=== PATIENT | male | born 1980 | race Caucasian/White ===

== ENCOUNTER 2016-08-25 22:29 | Observation (INO) | payer OTHER ==
[2016-08-25] MEDS ORDERED: Morphine 4 MG/ML VIAL ONE (23:01)
[2016-08-25 23:30] LABS: CHLORIDE 99 mmol/L (98-107); SODIUM 135 mmol/L (132-148)
[2016-08-25 23:31] LABS: BASO % 0.3 % (0.0-2.0); EOS # 0.1 K/uL (0.0-0.7); EOS % 1.7 % (0.0-4.0); HEMATOCRIT 44.4 % (35.0-51.0); LYMPH # 2.5 K/uL (1.0-4.3); LYMPH % 29.8 % (20.0-40.0); MEAN CELL VOLUME 86.9 fL (80.0-94.0); MEAN CORPUSCULAR HEMOGLOBIN 30.9 pg (27.0-31.0); MEAN CORPUSCULAR HGB CONC 35.5 g/dL (33.0-37.0); MEAN PLATELET VOLUME 7.6 fL (7.2-11.7); MONO # 0.8 K/uL (0.0-0.8); MONO % 9.7 % (0.0-10.0); NRBC % 0.3 % (0.0-2.0); RED CELL DISTRIBUTION WIDTH 12.3 % (11.5-14.5); WHITE BLOOD COUNT 8.3 K/uL (4.8-10.8)
[2016-08-25 23:32] LABS: ALB/GLOB RATIO 1.4 (1.0-2.1); ALKALINE PHOSPHATASE 72 U/L (38-126); AST/SGOT 77 U/L (17-59); BILIRUBIN,TOTAL 0.9 mg/dL (0.2-1.3); CARBON DIOXIDE 23 mmol/L (22-30); GFR AFRICAN-AMERICAN > 60; TOTAL PROTEIN 7.8 g/dL (6.3-8.3)
[2016-08-25 23:33] LABS: ALT/SGPT 176 U/L (21-72); BLOOD UREA NITROGEN 18 mg/dL (9-20); CALCIUM 9.5 mg/dl (8.6-10.4); GLUCOSE,RANDOM 218 mg/dL (75-110)
--- NOTE | 2016-08-26 00:51 | C.PDOC ---
History Of Present Illness 35 year old male presents to the ED with complaints of severe pain in the right leg. Patient states that two days ago he had vein stripping surgery in his right leg at a "vein center" by unknown doctor. Patient was advised to remove dressings today. He did and then began to experience the pain which prompted ED visit. Patient states he did not take any medicine at home and did not try to contact the vein center. He denies fever, chills, or any other complaints at this time. Time Seen by Provider: 08/25/16 22:51 Chief Complaint (Nursing): Lower Extremity Problem/Injury History Per: Patient History/Exam Limitations: no limitations Onset/Duration Of Symptoms: Hrs Current Symptoms Are (Timing): Still Present Recent travel outside of the [place]: No Additional History Per: Prior Records Past Medical History Reviewed: Historical Data, Nursing Documentation, Vital Signs Vital Signs: Last Vital Signs Temp 97.6 F 08/26/16 06:14 Pulse 72 08/26/16 06:14 Resp 18 08/26/16 06:14 BP 116/88 08/26/16 06:14 Pulse Ox 99 08/26/16 06:14 - Medical History PMH: Diabetes Family History: States: No Known Family Hx - Social History Hx Alcohol Use: Yes Hx Substance Use: No Review Of Systems Constitutional: Negative for: Fever, Chills, Sweats Cardiovascular: Negative for: Chest Pain, Palpitations Respiratory: Negative for: Cough, Shortness of Breath Gastrointestinal: Negative for: Nausea, Vomiting, Abdominal Pain, Diarrhea Musculoskeletal: Positive for: Leg Pain Neurological: Negative for: Headache, Dizziness Physical Exam - Physical Exam Appears: Non-toxic, In Acute Distress Skin: Warm, Dry Extremity: Swelling (mild swelling in right leg ), Other (multiple puncture wounds to right leg and sensation intact ) Pulses: Left Femoral: Normal, Right Femoral: Normal, Left Dorsalis Pedis: Normal , Right Dorsalis Pedis: Normal Neurological/Psych: Oriented x3, Normal Speech, Normal Cognition ED Course And Treatment - Laboratory Results Result Diagrams: 08/25/16 23:18 08/25/16 23:18 O2 Sat by Pulse Oximetry: 100 (room air ) Medical Decision Making Medical Decision Making: Patient was treated with morphine and also given Enoxaparin. 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 - Goals of Observation Goals of observation are:: wait to am to call in the Tech - Progress Note Progress Note: vs stable pt slept overnight did not need further pain meds Disposition Counseled Patient/Family Regarding: Need For Followup - Disposition Disposition: HOME/ ROUTINE Disposition Time: 06:46 Condition: GOOD - Clinical Impression Clinical Impression: History of vein stripping, Leg pain - Scribe Statement The provider has reviewed the documentation as recorded by the Scribbakari Lopez All medical record entries made by the Germanibbakari were at my direction and personally dictated by me. I have reviewed the chart and agree that the record accurately reflects my personal performance of the history, physical exam, medical decision making, and the department course for this patient. I have also personally directed, reviewed, and agree with the discharge instructions and disposition. Physician Patient Turnover Patient Signed Over To: Carlos Whittington Handoff Comments: Pending venous doppler, and dispo
[2016-08-26] MEDS ORDERED: Enoxaparin 40 mg Syringe SC STA (00:53)
[2016-08-26] MEDS ORDERED: Enoxaparin 60 mg Syringe ONE (01:24)
[2016-08-26] MEDS ORDERED: Enoxaparin 40 mg Syringe ONE (01:24)
[2016-08-26 12:40] VITALS: BP 107/74; PULSE 74; RESP 20; TEMP 98.2; O2SAT 98
--- NOTE | 2016-08-28 10:20 | VASCLAB ---
PROCEDURE: Right Lower Extremity Venous Duplex Exam. HISTORY: Right GSV EVLT 08/23/2016. Pain and swelling PRIORS: None. TECHNIQUE: Right common femoral, femoral, popliteal and posterior tibial, peroneal and great saphenous veins were evaluated. Flow was assessed with color Doppler, compressibility, assessment of phasic flow and augmentation response. Report prepared by QUANG Meier, RVT FINDINGS: RIGHT: 1. Common Femoral Vein: 1.1. Compressibility - Fully compressible: Thrombus - None: Flow - Phasic: Augmentation -Normal: Reflux - None. 2. Femoral Vein: 2.1. Compressibility - Fully compressible: Thrombus - None: Flow - Phasic: Augmentation -Normal: Reflux - None. 3. Popliteal Vein: 3.1. Compressibility - Fully compressible: Thrombus - None: Flow - Phasic: Augmentation -Normal: Reflux - None. 4. Posterior Tibial Vein: 4.1. Compressibility - Fully compressible: Thrombus - None: Flow - Phasic: Augmentation -Normal: Reflux - None. 5. Peroneal Vein: 5.1. Compressibility - Fully compressible: Thrombus - None: Flow - Phasic: Augmentation -Normal: Reflux - None. 6. Great Saphenous Vein: 6.1. Compressibility - Incompressible: Thrombus -Acute: Flow - Absent : Augmentation - None: Reflux - None. OTHER FINDINGS: The right greater saphenous ablation on 08/23/16 per patient. IMPRESSION: Thrombosis of the right greater saphenous vein. The common femoral vein is patent. Normal venous flow noted in the left common femoral vein.
== END 2016-08-26 12:20 | disposition home or self-care (01) ==
LOC: C.ER 22:29 → C.9OBSV 08-26 01:29
PROVIDERS: ADMIT Emergency Medicine; ATTEND Emergency Medicine
DX: M79.661 Pain in right lower leg (principal); E11.9 Type 2 diabetes mellitus without complications; Z79.4 Long term (current) use of insulin
CPT/HCPCS: 80053; 85025; 85378; 93971; 96372; 96374; 99285; G0378; J2270

== ENCOUNTER 2017-09-25 08:49 | Emergency (ER) | payer OTHER ==
[2017-09-25 08:57] VITALS: RESP 18
[2017-09-25] MEDS ORDERED: Epinephrine /Lidocaine HCL 1:100,000/2% 30 ml INJ ONE (09:26)
[2017-09-25] MEDS ORDERED: Lidocaine 1%/Epinephrine 1:100000 30 ml vial INJ ONE (10:00)
--- NOTE | 2017-09-25 10:47 | C.PDOC ---
History Of Present Illness 36 y/o male presents to ED with c/o rectal pain and discomfort for 5 days. Patient denies fever chills, abdominal pain, rectal bleeding or any other complaints at this time. Time Seen by Provider: 09/25/17 08:52 Chief Complaint (Nursing): Groin Pain History Per: Patient History/Exam Limitations: no limitations Onset/Duration Of Symptoms: Days Current Symptoms Are (Timing): Still Present Past Medical History Reviewed: Historical Data, Nursing Documentation, Vital Signs Vital Signs: Last Vital Signs Temp 98.4 F 09/25/17 11:15 Pulse 68 09/25/17 11:15 Resp 18 09/25/17 11:15 BP 120/88 09/25/17 11:15 Pulse Ox 98 09/25/17 11:15 - Medical History PMH: Diabetes, Hypercholesterolemia Surgical History: No Surg Hx Family History: States: No Known Family Hx - Social History Hx Alcohol Use: Yes Hx Substance Use: No - Immunization History Hx Tetanus Toxoid Vaccination: No Hx Influenza Vaccination: No Hx Pneumococcal Vaccination: No Review Of Systems Except As Marked, All Systems Reviewed And Found Negative. Gastrointestinal: Positive for: Rectal Pain Physical Exam - Physical Exam Appears: Non-toxic, No Acute Distress Skin: Warm, Dry, No Rash Head: Atraumatic, Normacephalic Eye(s): bilateral: Normal Inspection Oral Mucosa: Moist Neck: Normal ROM, Supple Cardiovascular: Rhythm Regular Respiratory: Normal Breath Sounds, No Rales, No Rhonchi, No Wheezing Gastrointestinal/Abdominal: Soft, No Tenderness, No Guarding, No Rebound Rectal: Other (erythematous fluctuant perianal abscess) Back: No CVA Tenderness, No Paraspinal Tenderness Neurological/Psych: Oriented x3, Normal Speech ED Course And Treatment O2 Sat by Pulse Oximetry: 100 - Incision & Drainage Of Abscess Anesthesia: Lidocaine 1%, With Epi Prep Used: Sterile Water, Betadine Procedure: Incised W/Scalpel Blade#: (11), Drained Pus (modertae), Packed W/ Gauze Medical Decision Making Medical Decision Making: assess: harlan anal abscess progress: advised to return to ed in 2 days for packing change. Disposition - Disposition Disposition: HOME/ ROUTINE Disposition Time: 10:30 Condition: STABLE Additional Instructions: return in 2 days to ER for packing change continue home medications return to ER if symptoms worsens or progress Prescriptions: Cephalexin [Keflex] 500 mg PO QID #40 capsule Naproxen [Naprosyn] 500 mg PO BID PRN #16 tab PRN Reason: Pain, Moderate (4-7) Instructions: Skin Abscess Forms: General Discharge Instructions, [facility] (Faroese) - Clinical Impression Clinical Impression: Abscess and cellulitis of gluteal region - Scribe Statement The provider has reviewed the documentation as recorded by the Germanibbakari Valverde All medical record entries made by the Germanibbakari were at my direction and personally dictated by me. I have reviewed the chart and agree that the record accurately reflects my personal performance of the history, physical exam, medical decision making, and the department course for this patient. I have also personally directed, reviewed, and agree with the discharge instructions and disposition.
[2017-09-25 11:17] VITALS: BP 120/88; PULSE 68; TEMP 98.4
[2017-09-26 07:59] VITALS: O2SAT 100
== END 2017-09-25 11:22 | disposition home or self-care (01) ==
LOC: C.ER 08:49
DX: L02.31 Cutaneous abscess of buttock (principal); L03.317 Cellulitis of buttock; E11.9 Type 2 diabetes mellitus without complications

== ENCOUNTER 2018-06-28 10:03 | Emergency (ER) | payer SELFPAY ==
[2018-06-28 10:08] VITALS: BMI 33.5
[2018-06-28] MEDS ORDERED: Lidocaine 2% Jelly (Uro-Jet) ONE (10:35)
[2018-06-28] MEDS ORDERED: Lidocaine 2% Jelly (Uro-Jet) TOP STA (10:39)
--- NOTE | 2018-06-28 10:39 | C.PDOC ---
History Of Present Illness 37 year old male presents to the ED for evaluation of possible recurrent abscess to right perirectal area ongoing for 3 days. Status post I&D on 09/25/17 for same, current swelling and pain in same area as before. Reports subjective f ever, but denies rectal pus. +DM, compliant with medications. POSSIBLE RECUR ABSCESS R PERIRECTAL AREA X 3 DAYS. SP I&D 09/25/17 FOR SAME, CURRENT SWELLING AND PAIN IN SAME AREA BEFORE. SUBJ FEVER. NO RECTAL PUS. +DM, COMPLIANT W MEDS EXAM MILD DIST NONTOXIC SKIN +R PERIRECTAL ABSCESS NO ERYTHEMA, INTACT ABD NEG REMAINDER NEG MDM CT, LABS Time Seen by Provider: 06/28/18 10:29 Chief Complaint (Nursing): Male Genitourinary History Per: Patient History/Exam Limitations: no limitations Onset/Duration Of Symptoms: Days (3) Current Symptoms Are (Timing): Still Present Location Of Injury: Posterior: Buttock (abscess ) Quality Of Symptoms: Draining Additional History Per: Prior Records Past Medical History Reviewed: Historical Data, Nursing Documentation, Vital Signs Vital Signs: Last Vital Signs Temp 98.7 F 06/28/18 10:09 Pulse 85 06/28/18 10:09 Resp 16 06/28/18 10:09 BP 136/90 06/28/18 10:09 Pulse Ox 95 06/28/18 10:09 - Medical History PMH: Diabetes, Hypercholesterolemia Surgical History: No Surg Hx Family History: States: No Known Family Hx - Social History Hx Alcohol Use: Yes Hx Substance Use: No - Immunization History Hx Tetanus Toxoid Vaccination: No Hx Influenza Vaccination: No Hx Pneumococcal Vaccination: No Review Of Systems Except As Marked, All Systems Reviewed And Found Negative. Constitutional: Positive for: Fever Gastrointestinal: Negative for: Nausea, Vomiting, Diarrhea Genitourinary: Positive for: Other (rectal pus ). Negative for: Dysuria, Hematuria Skin: Positive for: Other (perirectal abscess ) Physical Exam - Physical Exam Appears: Non-toxic, Other (Mild distress ) Skin: Warm, Dry, Other (+R PERIRECTAL ABSCESS NO ERYTHEMA, INTACT) Head: Normacephalic Eye(s): bilateral: Normal Inspection Nose: Normal Oral Mucosa: Moist Neck: Supple Chest: Symmetrical Cardiovascular: Rhythm Regular Respiratory: No Rales, No Rhonchi, No Wheezing, Other (NARD) Gastrointestinal/Abdominal: Soft, No Tenderness Extremity: Bilateral: Normal Color And Temperature, Normal ROM Neurological/Psych: Oriented x3, Normal Speech Gait: Steady ED Course And Treatment - Laboratory Results Result Diagrams: 06/28/18 11:10 06/28/18 11:10 O2 Sat by Pulse Oximetry: 95 (RA) Pulse Ox Interpretation: Normal Progress - Re-Evaluation Re-evaluation Note: 06/28/18 13:16 CT REPORT REVIEWED D/W SURG RESIDENT WILL EVAL IN ER 06/28/18 15:35 D/W SURG RESIDENT, ESTIMATING ETA 1800 06/28/18 17:35 CO RECUR PAIN. PENDING SURG EVAL. - Data Reviewed Data Reviewed: Lab, Diagnostic imaging, Old records Medical Decision Making Medical Decision Making: Plan - CT pelvis - Toradol 30mg IVP - Lidocaine 2% Gel - Labs Disposition Counseled Patient/Family Regarding: Studies Performed, Diagnosis - Disposition Disposition Time: 18:38 Condition: STABLE Forms: [facility] (Vincentian) - Clinical Impression Clinical Impression: Perianal abscess - Scribe Statement The provider has reviewed the documentation as recorded by the Scribbakari Valles All medical record entries made by the Scribe were at my direction and personally dictated by me. I have reviewed the chart and agree that the record accurately reflects my personal performance of the history, physical exam, medical decision making, and the department course for this patient. I have also personally directed, reviewed, and agree with the discharge instructions and disposition. Physician Patient Turnover Patient Signed Over To: Carlos Whittington Handoff Comments: indu surg eval, wale
[2018-06-28] MEDS ORDERED: Iodixanol 320 MG/ML 100 ML BOTTLE IV ONE (10:59)
[2018-06-28 11:14] LABS: BASO % 0.4 % (0.0-2.0); EOS # 0.1 K/uL (0.0-0.7); EOS % 1.1 % (0.0-4.0); HEMOGLOBIN 14.8 g/dL (12.0-18.0); LYMPH # 1.3 K/uL (1.0-4.3); LYMPH % 17.5 % (20.0-40.0); MEAN CELL VOLUME 89.3 fL (80.0-94.0); MEAN CORPUSCULAR HEMOGLOBIN 31.5 pg (27.0-31.0); MEAN CORPUSCULAR HGB CONC 35.3 g/dL (33.0-37.0); MEAN PLATELET VOLUME 7.6 fL (7.2-11.7); MONO # 0.7 K/uL (0.0-0.8); MONO % 9.9 % (0.0-10.0); NEUT # 5.4 K/uL (1.8-7.0); NEUT % 71.1 % (50.0-75.0); RBC 4.69 Mil/uL (4.40-5.90); RED CELL DISTRIBUTION WIDTH 11.9 % (11.5-14.5); WHITE BLOOD COUNT 7.5 K/uL (4.8-10.8)
[2018-06-28 11:19] LABS: VENOUS BLOOD GAS BASE EXCESS 1.5 mmol/L (0.0-2.0); VENOUS BLOOD GAS PCO2 43 mmHg (40-60); VENOUS BLOOD GAS PO2 34 mm/Hg (30-55)
[2018-06-28 11:27] LABS: BLOOD UREA NITROGEN 16 mg/dL (9-20); GFR NON-AFRICAN AMERICAN > 60
--- NOTE | 2018-06-28 13:06 | CT ---
Date of service: 06/28/2018 PROCEDURE: CT Pelvis with contrast HISTORY: PERIRECTAL ABSCESS COMPARISON: None available. TECHNIQUE: Contiguous axial images of the pelvis with contrast. Coronal and sagittal reformats generated. Contrast dose: 100 mL of Visipaque 320 intravenously. Radiation dose: Total exam DLP = 1019.27 mGy-cm. This CT exam was performed using one or more of the following dose reduction techniques: Automated exposure control, adjustment of the mA and/or kV according to patient size, and/or use of iterative reconstruction technique. FINDINGS: BLADDER: Unremarkable. No mass. REPRODUCTIVE ORGANS: Unremarkable. VISUALIZED BOWEL: Unremarkable. PERITONEUM: Unremarkable, as visualized. No free fluid. No free air. LYMPH NODES: Unremarkable. No enlarged lymph nodes. VASCULATURE: No aortic atherosclerotic calcification or mural plaque present. BONES: No fracture or focal lesion. OTHER FINDINGS: There is right perianal 3.2 x 2.2 centimeter thick enhancing wall fluid collection likely represent abscess formation. There is possible fistulous formation to the posterior aspect of the anus. IMPRESSION: Findings suggestive of right perianal abscess formation measures 3.2 x 2.2 centimeter with possible fistula to the posterior perianal skin.
[2018-06-28 16:29] VITALS: RESP 20
[2018-06-28] MEDS ORDERED: Lidocaine 2% w Epi 1:200,000 Pf Inj INJ ONE (18:22)
[2018-06-28] MEDS ORDERED: Lidocaine 1% Inj (20ml) INFIL ONE (18:49)
[2018-06-28] MEDS ORDERED: Tmp-Smz 800 mg-160 mg DS Tab PO STA (19:56)
[2018-06-28] MEDS ORDERED: Tmp-Smz 800 mg-160 mg DS Tab ONE (20:14)
[2018-06-28 20:18] VITALS: BP 109/61; PULSE 81; TEMP 97.6; O2SAT 97
--- NOTE | 2018-06-29 06:20 | CP.PCM.CON ---
<Kelvin Knight - Last Filed: 06/29/18 06:17> History of Present Illness - History of Present Illness History of Present Illness: General Surgery Consult for Dr. Matos This is a 37M with a PMH of poorly controled DM, HLD, and HTN he presents witha a 3 day history of a "pimple" on his bottock that became more paionful today. He denies any fevers or chills at home. However it is painful to sit down. He denies any chest pin or SOB. This has happened before and has been treated surgically. PMH: See above PSH: Abascess I and D ALL: NKDA Social: Denies vices Review of Systems - Review of Systems Review of Systems: 12 ppoint review of systems conducted and negative aside from where discussed in the HPI Past Patient History - Past Social History Smoking Status: Never Smoked - CARDIAC Hx Hypercholesterolemia: Yes - ENDOCRINE/METABOLIC Hx Diabetes Mellitus Type 2: Yes - PSYCHIATRIC Hx Substance Use: No - SURGICAL HISTORY Hx Surgeries: No - ANESTHESIA Hx Anesthesia: No Hx Anesthesia Reactions: No Meds Home Medications: Home Medication List Medication Instructions Recorded Confirmed Type Sulfamethoxazole/Trimethoprim 1 tab PO BID #14 tab 06/28/18 Rx [Bactrim DS 800 mg-160 mg] Allergies/Adverse Reactions: Allergies Allergy/AdvReac Type Severity Reaction Status Date / Time No Known Allergies Allergy Verified 06/28/18 10:06 Physical Exam - Constitutional Appears: Non-toxic, No Acute Distress - Head Exam Head Exam: ATRAUMATIC, NORMOCEPHALIC - Eye Exam Eye Exam: EOMI - ENT Exam ENT Exam: Mucous Membranes Moist - Respiratory Exam Respiratory Exam: NORMAL BREATHING PATTERN - Cardiovascular Exam Cardiovascular Exam: +S1, +S2 - GI/Abdominal Exam GI & Abdominal Exam: Soft. absent: Normal Bowel Sounds, Tenderness - Rectal Exam Additional comments: Flcutant julia anal lesion - Neurological Exam Neurological exam: Alert, Oriented x3 - Psychiatric Exam Psychiatric exam: Normal Affect, Normal Mood - Skin Skin Exam: Dry, Intact Results - Vital Signs Recent Vital Signs: Last Vital Signs Temp 97.6 F 06/28/18 20:15 Pulse 81 06/28/18 20:15 Resp 20 06/28/18 20:15 BP 109/61 06/28/18 20:15 Pulse Ox 97 06/28/18 20:15 - Labs Result Diagrams: 06/28/18 11:10 06/28/18 11:10 Labs: Laboratory Results - last 24 hr 06/28/18 06/28/18 06/28/18 11:10 11:10 11:15 WBC 7.5 RBC 4.69 Hgb 14.8 Hct 41.8 MCV 89.3 D MCH 31.5 H MCHC 35.3 RDW 11.9 Plt Count 176 MPV 7.6 Neut % (Auto) 71.1 Lymph % (Auto) 17.5 L Meeker % (Auto) 9.9 Eos % (Auto) 1.1 Baso % (Auto) 0.4 Neut # (Auto) 5.4 Lymph # (Auto) 1.3 Meeker # (Auto) 0.7 Eos # (Auto) 0.1 Baso # (Auto) 0.0 pO2 34 VBG pH 7.40 VBG pCO2 43 VBG HCO3 25.2 VBG Total CO2 27.9 VBG O2 Sat (Calc) 67.4 H VBG Base Excess 1.5 VBG Potassium 3.7 Glucose 392 H Lactate 1.8 FiO2 21.0 Sodium 132 135.0 Potassium 3.9 Chloride 98 100.0 Carbon Dioxide 24 Anion Gap 14 BUN 16 Creatinine 0.6 L Est GFR ( Amer) > 60 Est GFR (Non-Af Amer) > 60 Random Glucose 386 H D Calcium 9.0 Venous Blood Potassium 3.7 - Imaging and Cardiology CT scan - pelvis Status: Image reviewed by me Assessment & Plan - Assessment and Plan (Free Text) Assessment: 37M with perianal abscess Bedside I&D D/C home with ABX Followup in Clinic D/W Dr. Carlo Knight PGY3 <Aidan Matos N - Last Filed: 06/29/18 14:18> Results - Vital Signs Recent Vital Signs: Last Vital Signs Temp 97.6 F 06/28/18 20:15 Pulse 81 06/28/18 20:15 Resp 20 06/28/18 20:15 BP 109/61 06/28/18 20:15 Pulse Ox 97 06/28/18 20:15 - Labs Result Diagrams: 06/28/18 11:10 06/28/18 11:10 Assessment & Plan - Assessment and Plan (Free Text) Assessment: All medical record entries made by the resident were at my direction and personally directed by me. I have reviewed the chart and agree that the record accurately reflects my personal performance of the history, physical exam, medical decision making,
== END 2018-06-28 20:14 | disposition home or self-care (01) ==
LOC: C.ER 10:03
DX: K61.0 Anal abscess (principal); E11.9 Type 2 diabetes mellitus without complications; E78.00 Pure hypercholesterolemia, unspecified; I10 Essential (primary) hypertension
CPT/HCPCS: 46050; 72193; 80048; 82803; 85025; 96374; 96376; 99285; J1885; Q9967